=== PATIENT | male | born 1985 | race African-American/Black ===

== ENCOUNTER 2017-01-14 13:16 | Emergency (ER) | payer MEDICAID ==
[~2017-01-14] VITALS: Ht 188 cm; Wt 80.0 kg
[~2017-01-14 13:16] MED LIST: CEPH-460 PO; OXYC1CAP PO; PROT40TA PO; ZOFR4TAB3 SL
[2017-01-14 13:17] VITALS: BP 110/60; PULSE 62; RESP 15; TEMP 98.3; O2SAT 99
== END 2017-01-14 15:05 | disposition left against medical advice (07) ==
LOC: NED 13:16
DX: R10.9 Unspecified abdominal pain (principal); Z53.21 Procedure and treatment not carried out due to patient leaving prior to being seen by health care provider
CPT/HCPCS: 99281

== ENCOUNTER 2017-01-24 10:28 | Emergency (ER) | payer MEDICAID ==
[~2017-01-24] VITALS: Ht 190.5 cm; Wt 95.0 kg
[2017-01-24 10:30] VITALS: BP 136/76; PULSE 84; RESP 20; TEMP 97.2; O2SAT 100
[2017-01-24] MEDS ORDERED: ROBA500T PO (12:00)
[2017-01-24] MEDS ORDERED: IBUP800T23 PO (12:00)
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
== END 2017-01-24 12:27 | disposition home or self-care (01) ==
LOC: NETRI 10:28
DX: M54.5 Low back pain (principal)
CPT/HCPCS: 99282

== ENCOUNTER 2017-12-27 18:05 | Emergency (ER) | payer MEDICAID ==
[~2017-12-27 18:05] MED LIST changes: +IBUP1TAB7 PO; +ROBA500T PO
[2017-12-27] MEDS ORDERED: SODIUM CHLOR 0.9% 1000 ML INJ 1,000 ML IV SCH (18:31)
[2017-12-27 18:37] VITALS: BP 104/54; PULSE 93; RESP 18; TEMP 98.3; O2SAT 100
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
[2017-12-27] MEDS ORDERED: DIPHTH/TETANUS/ACEL PERTUSSIS (BOOSTER) 0.5 ML VIAL/PFS IM ONE (18:45)
[2017-12-27] MEDS ORDERED: SODIUM CHLORIDE 0.9% FLUSH 10 ML FLUSH IVF PRN (18:45)
[2017-12-27 19:00] VITALS: BP 97/52; PULSE 97; RESP 16; O2SAT 100
[2017-12-27 19:01] LABS: AUTOMATED NEUTROPHIL # 5.4 TH/MM3 (1.8-7.7); BASOPHIL % 0.5 % (0.0-2.0); EOSINOPHIL # 0.2 TH/MM3 (0-0.4); EOSINOPHIL % 1.8 % (0.0-4.0); HEMATOCRIT 41.5 % (39.0-51.0); HEMOGLOBIN 13.3 GM/DL (13.0-17.0); LYMPH % 32.2 % (9.0-44.0); MEAN CELL VOLUME 68.6 FL (80.0-100.0); MEAN PLATELET VOLUME 8.8 FL (7.0-11.0); MONO % 7.8 % (0.0-8.0); MONOCYTE # 0.7 TH/MM3 (0-0.9); NEUT % 57.7 % (16.0-70.0); PLATELET COUNT 234 TH/MM3 (150-450); RED BLOOD COUNT 6.05 MIL/MM3 (4.50-5.90); RED CELL DISTRIBUTION WIDTH 14.7 % (11.6-17.2); WHITE BLOOD COUNT 9.3 TH/MM3 (4.0-11.0)
[2017-12-27 19:15] LABS: INTERNATIONAL NORMALIZED RATIO 1.1 RATIO; PROTHROMBIN TIME - PATIENT 11.1 SEC (9.8-11.6)
[2017-12-27 19:18] LABS: BICARBONATE 12.8 MEQ/L (21.0-32.0); CHLORIDE 103 MEQ/L (98-107); CREATININE 1.97 MG/DL (0.60-1.30); GLOMERULAR FILTRATION RATE 48 ML/MIN (>89); GLUCOSE,RANDOM 89 MG/DL (74-106); SODIUM (NA) 139 MEQ/L (136-145)
[2017-12-27 19:19] LABS: BLOOD UREA NITROGEN 14 MG/DL (7-18)
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
[2017-12-27 21:00] VITALS: BP 152/71; PULSE 103; RESP 16; O2SAT 100
--- NOTE | 2017-12-27 22:59 | PD ---
Physical Exam Date Seen by Provider: Dec 27, 2017 Time Seen by Provider: 22:57 Data Data Last Documented VS Vital Signs Date Time Temp Pulse Resp B/P (MAP) Pulse Ox O2 Delivery O2 Flow Rate FiO2 12/27/17 23:19 12/27/17 23:00 97 16 100 Room Air 12/27/17 18:37 98.3 Orders Orders Basic Metabolic Panel (Bmp) (12/27/17 18:31) Complete Blood Count With Diff (12/27/17 18:31) Prothrombin Time / Inr (Pt) (12/27/17 18:31) Act Partial Throm Time (Ptt) (12/27/17 18:31) Type And Screen (12/27/17 18:31) Alcohol (Ethanol) (12/27/17 18:31) Ct Brain W/O Iv Contrast(Rout) (12/27/17 18:31) Ct Cerv Spine W/O Contrast (12/27/17 18:31) Ct Facial Bones W/O Iv Cont (12/27/17 18:31) Iv Access Insert/Monitor (12/27/17 18:31) Ecg Monitoring (12/27/17 18:31) Oximetry (12/27/17 18:31) Qcdq-Ezg-Duztgm (Booster) Inj (Boostrix (12/27/17 18:45) Sodium Chlor 0.9% 1000 Ml Inj (Ns 1000 M (12/27/17 18:31) Sodium Chloride 0.9% Flush (Ns Flush) (12/27/17 18:45) Ed Discharge Order (12/27/17 23:11) Labs Laboratory Tests Test 12/27/17 18:35 White Blood Count 9.3 TH/MM3 Red Blood Count 6.05 MIL/MM3 Hemoglobin 13.3 GM/DL Hematocrit 41.5 % Mean Corpuscular Volume 68.6 FL Mean Corpuscular Hemoglobin 22.0 PG Mean Corpuscular Hemoglobin Concent 32.0 % Red Cell Distribution Width 14.7 % Platelet Count 234 TH/MM3 Mean Platelet Volume 8.8 FL Neutrophils (%) (Auto) 57.7 % Lymphocytes (%) (Auto) 32.2 % Monocytes (%) (Auto) 7.8 % Eosinophils (%) (Auto) 1.8 % Basophils (%) (Auto) 0.5 % Neutrophils # (Auto) 5.4 TH/MM3 Lymphocytes # (Auto) 3.0 TH/MM3 Monocytes # (Auto) 0.7 TH/MM3 Eosinophils # (Auto) 0.2 TH/MM3 Basophils # (Auto) 0.0 TH/MM3 CBC Comment DIFF FINAL Differential Comment Prothrombin Time 11.1 SEC Prothromb Time International Ratio 1.1 RATIO Activated Partial Thromboplast Time 25.0 SEC Blood Urea Nitrogen 14 MG/DL Creatinine 1.97 MG/DL Random Glucose 89 MG/DL Calcium Level 9.0 MG/DL Sodium Level 139 MEQ/L Potassium Level 3.5 MEQ/L Chloride Level 103 MEQ/L Carbon Dioxide Level 12.8 MEQ/L Anion Gap 23 MEQ/L Estimat Glomerular Filtration Rate 48 ML/MIN Ethyl Alcohol Level LESS THAN 3 MG/DL MDM Supervised Visit with [facility]: No Narrative Course I was asked to evaluate this patient's facial lacerations. The patient was initially seen by Dr. Espinal and signed out to Dr. Khan at change of shift. . Please see their note sfor full H&P. On my exam is 1 cm laceration in the right eyebrow and a 1.5 cm stellate laceration in the cleft of the upper lip. Laceration repair 2 was performed. Please see my procedure note for details. retains care of this patient. Please see his note for disposition. Procedures Procedure Narrative LACERATION LOCATION: Right eyebrow LENGTH: 1 cm NUMBER OF STITCHES/LIZBETH: 3 REPAIR: The area of the laceration was prepped with Betadine and sterilely draped. The laceration was infiltrated with 1% lidocaine with epinephrine. The wound was copiously irrigated and explored without evidence of foreign body, tendon injury or neurovascular injury. The wound was closed using 5-0 nylon. This was a single layer repair. A sterile dressing was applied. The patient was advised to keep the dressing clean and dry. Patient tolerated the procedure well. LACERATION LOCATION: Cleft of the upper lip LENGTH: 2 cm V-shaped NUMBER OF STITCHES/LIZBETH: 4 REPAIR: The area of the laceration was prepped with Betadine and sterilely draped. The laceration was infiltrated with 1% lidocaine with epinephrine. The wound was copiously irrigated and explored without evidence of foreign body, tendon injury or neurovascular injury. The wound was closed using 5-0 nylon. This was a single layer repair. A sterile dressing was applied. The patient was advised to keep the dressing clean and dry. Patient tolerated the procedure well. Scripts Tramadol (Ultram) 50 Mg Tab 50 MG PO Q8H Y for PAIN, #15 TAB 0 Refills Prov: Arturo Khan MD 12/27/17 Cece Alvarado Dec 27, 2017 22:59
[2017-12-27 23:00] VITALS: BP 135/65; PULSE 97; RESP 16; O2SAT 100
[2017-12-27] MEDS ORDERED: TRAM50 PO (23:09)
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
== END 2017-12-27 23:25 | disposition home or self-care (01) ==
LOC: NEPE 18:05
DX: S02.2XXA Fracture of nasal bones, initial encounter for closed fracture (principal); S01.111A Laceration without foreign body of right eyelid and periocular area, initial encounter; S01.511A Laceration without foreign body of lip, initial encounter; Y00.XXXA Assault by blunt object, initial encounter; Z23 Encounter for immunization; Z79.899 Other long term (current) drug therapy
CPT/HCPCS: 12013; 70450; 70486; 72125; 80048; 80307; 85025; 85610; 85730; 86850; 86900; 86901; 90471; 90715; 96360; 99284; J7030